=== PATIENT | female | born 1930 | race Caucasian/White ===

== ENCOUNTER 2017-02-15 08:11 | Observation (INO) | payer MEDICARE, OTHER ==
[2017-02-15] VITALS (11 sets, daily range): BP systolic 147–187; BP diastolic 81–101; PULSE 78–104; RESP 16–21; TEMP 97.6–97.8; O2SAT 97–99
[~2017-02-15] VITALS: Ht 157.5 cm; Wt 69.0 kg
[~2017-02-15 08:11] MED LIST: BLOO1KIT65; JANT5TAB2 PO; METO25 PO; [UNRECOGNIZED DRUG - CODE] PO
[2017-02-15] MEDS ORDERED: SODIUM CHLORIDE 0.9% FLUSH 10 ML FLUSH IVF PRN (08:45)
[2017-02-15] MEDS ORDERED: WARF-20 PO (08:48)
[2017-02-15] MEDS ORDERED: WARF-58 PO (08:48)
--- NOTE | 2017-02-15 08:48 | PD ---
HPI Chief Complaint: near syncope Time Seen by Provider: 08:38 Travel History International Travel<30 days: No Contact w/Intl Traveler<30days: No History of Present Illness HPI 86-year-old female states she was walking when she felt like she was gonna pass out and got nauseous. She states she developed a mild right frontal headache that has now gone away. She denies any associated chest pain or chest pressure or other concurrent complaints other than feeling weak all over. She states that she is on Coumadin for prior history of stroke and has a mild left-sided deficit from this. She states she lives at home by herself so she called her neighbor who insisted she called the ambulance to help her out. She states feeling tired like. PFSH Past Medical History Hx Anticoagulant Therapy: Yes Arthritis: Yes Asthma: No Atrial Fibrillation: Yes Autoimmune Disease: No Blood Disorders: No Anxiety: No Depression: No Heart Rhythm Problems: Yes (ATRIAL FIBRILLATION) Cancer: No Cardiovascular Problems: Yes (AFIB) High Cholesterol: Yes Chemotherapy: No Chest Pain: No Congestive Heart Failure: No COPD: No Cerebrovascular Accident: Yes (2011) Diabetes: No Diminished Hearing: No Endocrine: No GERD: No Genitourinary: No Hiatal Hernia: No Hypertension: No Immune Disorder: No Kidney Stones: No Musculoskeletal: Yes Neurologic: Yes Psychiatric: No Reproductive: No Respiratory: No Migraines: No Myocardial Infarction: No Radiation Therapy: No Renal Failure: No Seizures: No Sickle Cell Disease: No Sleep Apnea: No Thyroid Disease: Yes Ulcer: No PNEUMOCCOCAL Vaccine (Year): 1 Menopausal: Yes Past Surgical History Abdominal Surgery: No AICD: No Cardiac Surgery: No Ear Surgery: No Endocrine Surgery: No Eye Surgery: No Genitourinary Surgery: Yes (BLADDER LIFT) Gynecologic Surgery: Yes (PARTIAL HYSTERECTOMY) Hysterectomy: Yes (PARTIAL) Oral Surgery: No Pacemaker: No Thoracic Surgery: No Other Surgery: Yes (CYST ON NECK REMOVED) Social History Alcohol Use: Yes (occasional glass of wine) Tobacco Use: No Substance Use: No Allergies-Medications (Allergen,Severity, Reaction): Coded Allergies: Digoxin (Verified Adverse Reaction, Mild, WEAKNESS, 02/15/17) Reported Meds & Prescriptions Reported Meds & Active Scripts Active Reported Warfarin 3 Mg Tab 3 Mg PO MON-=THUR-MON Warfarin 4 Mg Tab 4 Mg PO -MON-MON PRN Review of Systems Except as stated in HPI: all other systems reviewed are Neg Physical Exam Narrative GENERAL: Well-nourished, well-developed patient. SKIN: Warm and dry. HEAD: Normocephalic and atraumatic. EYES: No injection or drainage. Pupils equal ENT: No nasal drainage noted. NECK: Supple, trachea midline. CARDIOVASCULAR: Regular rate and rhythm RESPIRATORY: Breath sounds equal bilaterally. No accessory muscle use. GASTROINTESTINAL: Abdomen soft, non-tender, nondistended. NEUROLOGICAL: Awake and alert. Mild left-sided deficit at baseline per patient and sensory grossly within normal limits. Normal speech. Data Data Last Documented VS Vital Signs Date Time Temp Pulse Resp B/P Pulse Ox O2 Delivery O2 Flow Rate FiO2 02/15/17 11:10 97.8 78 16 147/81 99 Room Air Orders Electrocardiogram (02/15/17 ) Electrocardiogram (02/15/17 08:44) Ckmb (Isoenzyme) Profile (02/15/17 08:44) Complete Blood Count With Diff (02/15/17 08:44) Comprehensive Metabolic Panel (02/15/17 08:44) Magnesium (Mg) (02/15/17 08:44) Prothrombin Time / Inr (Pt) (02/15/17 08:44) Act Partial Throm Time (Ptt) (02/15/17 08:44) Troponin I (02/15/17 08:44) Lipase (02/15/17 08:44) Chest, Single Ap (02/15/17 08:44) Ecg Monitoring (02/15/17 08:44) Iv Access Insert/Monitor (02/15/17 08:44) Oximetry (02/15/17 08:44) Sodium Chloride 0.9% Flush (Ns Flush) (02/15/17 08:45) Ct Brain W/O Iv Contrast(Rout) (02/15/17 ) Urinalysis - C+S If Indicated (02/15/17 08:48) Admit Order (Ed Use Only) (02/15/17 11:13) Labs Laboratory Tests Test 02/15/17 02/15/17 08:00 10:55 White Blood Count 7.0 TH/MM3 Red Blood Count 4.03 MIL/MM3 Hemoglobin 12.9 GM/DL Hematocrit 38.2 % Mean Corpuscular Volume 94.6 FL Mean Corpuscular Hemoglobin 31.9 PG Mean Corpuscular Hemoglobin 33.7 % Concent Red Cell Distribution Width 15.0 % Platelet Count 186 TH/MM3 Mean Platelet Volume 10.3 FL Neutrophils (%) (Auto) 78.1 % Lymphocytes (%) (Auto) 13.3 % Monocytes (%) (Auto) 7.0 % Eosinophils (%) (Auto) 0.7 % Basophils (%) (Auto) 0.9 % Neutrophils # (Auto) 5.5 TH/MM3 Lymphocytes # (Auto) 0.9 TH/MM3 Monocytes # (Auto) 0.5 TH/MM3 Eosinophils # (Auto) 0.0 TH/MM3 Basophils # (Auto) 0.1 TH/MM3 CBC Comment DIFF FINAL Differential Comment Prothrombin Time 25.5 SEC Prothromb Time International 2.2 RATIO Ratio Activated Partial 37.3 SEC Thromboplast Time Sodium Level 140 MEQ/L Potassium Level 3.8 MEQ/L Chloride Level 105 MEQ/L Carbon Dioxide Level 25.8 MEQ/L Anion Gap 9 MEQ/L Blood Urea Nitrogen 13 MG/DL Creatinine 0.60 MG/DL Estimat Glomerular Filtration 94 ML/MIN Rate Random Glucose 120 MG/DL Calcium Level 8.8 MG/DL Magnesium Level 2.0 MG/DL Total Bilirubin 0.8 MG/DL Aspartate Amino Transf 18 U/L (AST/SGOT) Alanine Aminotransferase 12 U/L (ALT/SGPT) Alkaline Phosphatase 77 U/L Total Creatine Kinase 33 U/L Troponin I LESS THAN 0.02 NG/ML Total Protein 7.0 GM/DL Albumin 3.4 GM/DL Lipase 67 U/L Urine Color LIGHT-YELLOW Urine Turbidity CLEAR Urine pH 7.0 Urine Specific [place] 1.012 Urine Protein NEG mg/dL Urine Glucose (UA) NEG mg/dL Urine Ketones 10 mg/dL Urine Occult Blood NEG Urine Nitrite NEG Urine Bilirubin NEG Urine Urobilinogen LESS THAN 2.0 MG/DL Urine Leukocyte Esterase MOD Urine RBC 1 /hpf Urine WBC 1 /hpf Urine Mucus FEW /lpf Microscopic Urinalysis Comment CULT NOT INDICATED MDM Medical Decision Making Medical Screen Exam Complete: Yes Emergency Medical Condition: Yes Medical Record Reviewed: Yes (past history confirmed) Interpretation(s) CBC & BMP Diagram 02/15/17 08:00 Last 24 hours Impressions Chest X-Ray 02/15/17 0864 Signed Impressions: Service Date/Time: Wednesday, February 15, 2017 08:48 - CONCLUSION: Mild compensated cardiomegaly otherwise negative . Reese Morris MD FACR Head CT 02/15/17 0000 Signed Impressions: Service Date/Time: Wednesday, February 15, 2017 10:39 - CONCLUSION: Mild atrophy with periventricular ischemic changes and old cerebral infarct on the right. Negative for parenchymal hemorrhage or acute infarction. Reese Morris MD FACR Differential Diagnosis Intercranial bleed, UTI, renal failure, anemia, atypical [place] Narrative Course Will check blood work, imaging and monitor Patient has not given urinalysis yet. She does note that she recently had a urinary tract infection a week ago and is no longer on antibiotics. Will await urinalysis ua without significant signs of infection. We'll admit for cardiac monitoring and observation of near syncope, patient updated and agrees to plan Physician Communication Physician Communication dr guillen agrees to admit Diagnosis Primary Impression: Near syncope Admitting Information Admitting Physician Requests: Observation Ciara Martin MD Feb 15, 2017 08:48
--- NOTE | 2017-02-15 09:03 | RADRPT ---
EXAM DATE/TIME: 02/15/2017 08:48 [facility] COMPARISON: CHEST SINGLE AP, March 19, 2016, 18:27. INDICATIONS : Patient has had chest pain and felt like she was going to pass out this morning. MEDICAL HISTORY : Cardiovascular disease. CVA. SURGICAL HISTORY : None. ENCOUNTER: Initial ACUITY: 1 day PAIN SCORE: 4/10 LOCATION: Bilateral chest FINDINGS: The lungs are clear. The heart is minimally enlarged. The pulmonary vascularity is normal. There is n o evidence for infiltrate or failure. The portion of the bony skeleton visualized is unremarkable. CONCLUSION: Mild compensated cardiomegaly otherwise negative . Reese Morris MD FACR on February 15, 2017 at 9:01 Board Certified Radiologist. This report was verified electronically.
[2017-02-15 09:04] LABS: AUTOMATED NEUTROPHIL # 5.5 TH/MM3 (1.8-7.7); BASOPHIL # 0.1 TH/MM3 (0-0.2); BASOPHIL % 0.9 % (0.0-2.0); EOSINOPHIL % 0.7 % (0.0-4.0); HEMATOCRIT 38.2 % (35.0-46.0); HEMO FLAGS DIFF FINAL; LYMPH % 13.3 % (9.0-44.0); LYMPHOCYTE # 0.9 TH/MM3 (1.0-4.8); MEAN CELL VOLUME 94.6 FL (80.0-100.0); MEAN CORPUSCULAR HEMOGLOBIN 31.9 PG (27.0-34.0); MEAN CORPUSCULAR HGB CONC 33.7 % (32.0-36.0); NEUT % 78.1 % (16.0-70.0); PLATELET COUNT 186 TH/MM3 (150-450); RED BLOOD COUNT 4.03 MIL/MM3 (4.00-5.30)
[2017-02-15 09:11] LABS: APTT (PATIENT) 37.3 SEC (24.3-30.1); INTERNATIONAL NORMALIZED RATIO 2.2 RATIO; PROTHROMBIN TIME - PATIENT 25.5 SEC (9.8-11.6)
[2017-02-15 09:18] LABS: ANION GAP 9 MEQ/L (5-15); AST (GOT) 18 U/L (15-37); BICARBONATE 25.8 MEQ/L (21.0-32.0); BLOOD UREA NITROGEN 13 MG/DL (7-18); CHLORIDE 105 MEQ/L (98-107); GLOMERULAR FILTRATION RATE 94 ML/MIN (>89); POTASSIUM 3.8 MEQ/L (3.5-5.1); SODIUM (NA) 140 MEQ/L (136-145)
[2017-02-15 09:23] LABS: ALKALINE PHOSPHATASE 77 U/L (45-117); ALT (GPT) 12 U/L (10-53); TOTAL BILIRUBIN ADULT 0.8 MG/DL (0.2-1.0)
[2017-02-15 09:27] LABS: CREATINE KINASE 33 U/L (26-192)
--- NOTE | 2017-02-15 10:59 | RADRPT ---
EXAM DATE/TIME: 02/15/2017 10:39 [facility] COMPARISON: CT BRAIN W/O CONTRAST, March 19, 2016, 19:01. INDICATIONS : Dizziness, near-syncopal episode. RADIATION DOSE: 56.77 CTDIvol (mGy) MEDICAL HISTORY : Stroke. Cardiovascular disease SURGICAL HISTORY : None. ENCOUNTER: Initial ACUITY: 1 day PAIN SCALE: 0/10 LOCATION: cranial TECHNIQUE: Multiple contiguous axial images were obtained of the head. Using automated exposure control and adj ustment of the mA and/or kV according to patient size, radiation dose was kept as low as reasonably a chievable to obtain optimal diagnostic quality images. DICOM format image data is available electro nically for review and comparison. FINDINGS: CEREBRUM: The ventricles are normal for age. No evidence of midline shift, mass lesion, hemorrhage or acute in farction. Evidence for old infarct is present on the right. No extra-axial fluid collections are se en. POSTERIOR FOSSA: The cerebellum and brainstem are intact. The 4th ventricle is midline. The cerebellopontine angle i s unremarkable. EXTRACRANIAL: The visualized portion of the orbits is intact. SKULL: The calvaria is intact. No evidence of skull fracture. CONCLUSION: Mild atrophy with periventricular ischemic changes and old cerebral infarct on the right. Negative for parenchymal hemorrhage or acute infarction. Reese Morris MD FACR on February 15, 2017 at 10:56 Board Certified Radiologist. This report was verified electronically.
[2017-02-15 11:17] LABS: BLOOD, URINE NEG (NEG); COMMENT (UR) CULT NOT INDICATED; CULTURE IF INDICATED CULT NOT INDICATED; GLUCOSE,URINE NEG (NEG); KETONE, URINE 10 mg/dL (NEG); MUCUS URINE FEW /lpf (OCC); NITRITE,URINE NEG (NEG); URINE COLOR LIGHT-YELLOW (YELLW/STRAW)
[2017-02-15] MEDS ORDERED: ONDANSETRON HCL 4 MG/2 ML VIAL IVP PRN (11:45)
[2017-02-15] MEDS ORDERED: SODIUM CHLORIDE 0.9% FLUSH 10 ML FLUSH IV FLUSH PRN (11:45)
[2017-02-15] MEDS ORDERED: ACETAMINOPHEN 325 MG TAB PO PRN (11:45)
[2017-02-15] MEDS ORDERED: BISACODYL 10 MG SUPP RECTAL PRN (11:45)
[2017-02-15] MEDS ORDERED: NALOXONE HCL 0.4 MG/ML AMP IV PRN (11:45)
[2017-02-15] MEDS ORDERED: LACTULOSE SYRUP 20 GM/30 ML CUP PO PRN (11:45)
[2017-02-15] MEDS ORDERED: MAGNESIUM HYDROXIDE SUSP 30 ML CUP PO PRN (11:45)
[2017-02-15] MEDS ORDERED: SENNOSIDES 8.6 MG TAB PO PRN (11:45)
--- NOTE | 2017-02-15 15:14 | HHI.HP ---
[facility] Yelena Evangelista MD Admission Diagnosis near syncope Diagnoses: Chief Complaint: near syncope Travel History International Travel<30 Days: No Contact w/Intl Traveler <30 Da: No Traveled to Known Affected Are: No History of Present Illness Written by Kaylyn Mccoy, acting as scribe for Dr. Villavicencio on 02/15/17 at 15:06. This note was transcribed by scribTAQUERIA Mccullough. I, Dr. Randell Villavicencio personally performed the history, physical exam, and medical decision making; and confirmed the accuracy of the information in the transcribed note. Authenticated by Dr. Randell Villavicencio on 02/15/17 at 23:12. 86-year-old female with history of CVA and atrial fibrillation on Coumadin, presents with acute onset of near syncope this morning 02/15/17. The patient explains she woke up this morning, got up from bed, felt very weak, dizzy, and diaphoretic. She also reported severe headache and nausea, but no vomiting. She states her heart is always "racing" because of her afib. She did not check her pulse this morning. Her symptoms persisted for a few hours until after she arrived to the hospital. Currently her symptoms have subsided, but she still feels weak and unsteady. She reports history of stroke 6 years ago and she was worried she was having another one. She is not on any rate control medications for her afib and does not want to be on any new meds. She states she had a bad reaction with syncope and fall previously while on digoxin. She has been eating and drinking well recently. Denies any other medical complaints including no fevers/chills, chest pain, shortness of breath, abdominal pains. She was found to have abnormal urinalysis upon arrival. Patient states 2 weeks ago she had a routine check up with her PCP, found to have a UTI, and already completed treatment with a course of antibiotics. She denies any dysuria, increased urinary frequency/urgency, or suprapubic pain. Review of Systems Except as stated in HPI: all other systems reviewed are Neg Past Family Social History Past Medical History CVA Atrial Fibrillation on Coumadin Denies any history of HTN, HLD, or Diabetes. 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 Reported Medications Warfarin 3 Mg Tab 3 Mg PO MON-=TH-MON Warfarin 4 Mg Tab 4 Mg PO -MON-MON PRN Allergies: Coded Allergies: Digoxin (Verified Adverse Reaction, Mild, WEAKNESS, 02/15/17) Active Ordered Medications Current Medications Medications (Trade) Dose Ordered Sig/Trudy Route Start Time Stop Time Status Last Admin (NS Flush) 2 ml UNSCH PRN IV FLUSH 02/15/17 11:45 (NS Flush) 2 ml BID IV FLUSH 02/15/17 21:00 (Tylenol) 650 mg Q4H PRN PO 02/15/17 11:45 (Zofran Inj) 4 mg Q6H PRN IVP 02/15/17 11:45 (Narcan Inj) 0.4 mg UNSCH PRN IV 02/15/17 11:45 (Zenia-Colace) 1 tab BID PO 02/15/17 21:00 (Milk Of Magnesia Liq) 30 ml Q12H PRN PO 02/15/17 11:45 (Senokot) 17.2 mg Q12H PRN PO 02/15/17 11:45 (Dulcolax Supp) 10 mg DAILY PRN RECTAL 02/15/17 11:45 (Lactulose Liq) 30 ml DAILY PRN PO 02/15/17 11:45 Family History Father with stomach cancer Social History Denies ever any tobacco use Very occasional alcohol use Denies illicit drug use Physical Exam Vital Signs Vital Signs Date Time Temp Pulse Resp B/P Pulse Ox O2 Delivery O2 Flow Rate FiO2 02/15/17 12:34 97.8 89 16 150/81 99 02/15/17 11:56 97 21 02/15/17 11:47 89 16 153/86 96 16 149/92 89 149/96 02/15/17 11:10 97.8 78 16 147/81 99 Room Air 02/15/17 09:52 97.8 78 17 156/83 99 Room Air 02/15/17 08:48 16 98 Room Air 02/15/17 08:38 86 17 98 Room Air 02/15/17 08:37 86 17 168/97 98 Physical Exam GENERAL: Well-nourished, well-developed pleasant elderly female patient in [facility]. SKIN: Warm and dry. No rash. HEAD: Normocephalic. Atraumatic. EYES: Pupils equal and round. No scleral icterus. No injection or drainage. ENT: No nasal bleeding or discharge. Mucous membranes pink and moist. NECK: Supple. Trachea midline. CARDIOVASCULAR: Irregular rate and rhythm. S1, S2 noted. No murmur appreciated. RESPIRATORY: No accessory muscle use. Clear to auscultation. Breath sounds equal bilaterally. GASTROINTESTINAL: Abdomen soft, non-tender, nondistended. Normoactive bowel sounds x4. MUSCULOSKELETAL: No obvious deformities. 1+ BLE edema. B/l Calves nontender to palpation. NEUROLOGICAL: Awake and alert. No obvious cranial nerve deficits. Motor grossly within normal limits. Normal speech. PSYCHIATRIC: Appropriate mood and affect; insight and judgment normal. Laboratory Laboratory Tests Test 02/15/17 02/15/17 08:00 10:55 White Blood Count 7.0 Red Blood Count 4.03 Hemoglobin 12.9 Hematocrit 38.2 Mean Corpuscular Volume 94.6 Mean Corpuscular Hemoglobin 31.9 Mean Corpuscular Hemoglobin 33.7 Concent Red Cell Distribution Width 15.0 Platelet Count 186 Mean Platelet Volume 10.3 Neutrophils (%) (Auto) 78.1 Lymphocytes (%) (Auto) 13.3 Monocytes (%) (Auto) 7.0 Eosinophils (%) (Auto) 0.7 Basophils (%) (Auto) 0.9 Neutrophils # (Auto) 5.5 Lymphocytes # (Auto) 0.9 Monocytes # (Auto) 0.5 Eosinophils # (Auto) 0.0 Basophils # (Auto) 0.1 CBC Comment DIFF FINAL Differential Comment Prothrombin Time 25.5 Prothromb Time International 2.2 Ratio Activated Partial 37.3 Thromboplast Time Sodium Level 140 Potassium Level 3.8 Chloride Level 105 Carbon Dioxide Level 25.8 Anion Gap 9 Blood Urea Nitrogen 13 Creatinine 0.60 Estimat Glomerular Filtration 94 Rate Random Glucose 120 Calcium Level 8.8 Magnesium Level 2.0 Total Bilirubin 0.8 Aspartate Amino Transf 18 (AST/SGOT) Alanine Aminotransferase 12 (ALT/SGPT) Alkaline Phosphatase 77 Total Creatine Kinase 33 Troponin I LESS THAN 0.02 Total Protein 7.0 Albumin 3.4 Lipase 67 Urine Color LIGHT-YELLOW Urine Turbidity CLEAR Urine pH 7.0 Urine Specific [place] 1.012 Urine Protein NEG Urine Glucose (UA) NEG Urine Ketones 10 Urine Occult Blood NEG Urine Nitrite NEG Urine Bilirubin NEG Urine Urobilinogen LESS THAN 2.0 Urine Leukocyte Esterase MOD Urine RBC 1 Urine WBC 1 Urine Mucus FEW Microscopic Urinalysis Comment CULT NOT INDICATED Date/Time Procedure Status Source Growth 02/15/17 10:55 Urine Culture Received Urine Clean Catch Pending Result Diagram: 02/15/17 0800 02/15/17 0800 Imaging Last Impressions Chest X-Ray 02/15/17 0844 Signed Impressions: Service Date/Time: Wednesday, February 15, 2017 08:48 - CONCLUSION: Mild compensated cardiomegaly otherwise negative . Reese Morris MD FACR Head CT 02/15/17 0000 Signed Impressions: Service Date/Time: Monday, February 15, 2017 10:39 - CONCLUSION: Mild atrophy with periventricular ischemic changes and old cerebral infarct on the right. Negative for parenchymal hemorrhage or acute infarction. Reese Morris MD FACR Assessment and Plan Problem List: (1) Near syncope ICD Code: R55 Status: Acute (2) Atrial fibrillation ICD Code: I48.91 Status: Chronic Assessment and Plan 86-year-old female with history of CVA and atrial fibrillation on Coumadin, presents with acute onset of near syncope this morning 02/15/17. Near Syncope: possibly related to orthostasis or arrhythmia. Need to rule out ACS. Head CT images reviewed, shows mild atrophy with periventricular ischemic changes and old cerebral infarct on the right; no acute findings. -Continue to rule out ACS with serial cardiac enzymes and EKGs -Check orthostatics -Monitor on telemetry, neuro checks -Consult PT Atrial Fibrillation: on Coumadin, INR therapeutic at 2.2. Patient sees propeller engineer Dr. Arzate, hx of unremarkable outpatient echocardiograms in the past. -Continue patient's coumadin -monitor heart rate Hx of CVA: chronic -continue coumadin as above -monitor neuro checks Abnormal Urinalysis: asymptomatic. Patient recently completed antibiotic treatment for UTI 2 weeks ago. -check mandatory urine culture -will hold off on antibiotics at this time DVT Prophylaxis: on Coumadin Discussed Condition With Patient, ER Kaylyn Philippe PA-C Feb 15, 2017 15:14 Annalise Villavicencio DO Feb 15, 2017 23:12
[2017-02-15 15:20] LABS: CREATINE KINASE 35 U/L (26-192)
[2017-02-15] MEDS ORDERED: WARFARIN SOD 4 MG TAB PO SCH (17:00)
[2017-02-15 22:37] LABS: CREATINE KINASE 38 U/L (26-192)
[2017-02-15] MEDS: SODIUM CHLORIDE 0.9% FLUSH 10 ML FLUSH IV FLUSH SCH (22:50)
[2017-02-15] MEDS: DOCUSATE SODIUM 50 MG/SENNA 8.6 MG TAB PO SCH (22:50)
[2017-02-16 00:19] VITALS: BP_SYST 136; BP_SYST 139; BP_SYST 154; BP_DIAS 84; BP_DIAS 94; PULSE 84; RESP 17; TEMP 98.1; O2SAT 98
[2017-02-16 04:10] VITALS: BP_SYST 146; BP_SYST 149; BP_SYST 157; BP_DIAS 83; BP_DIAS 86; BP_DIAS 90; PULSE 96; RESP 16; TEMP 97.9; O2SAT 94
[2017-02-16 07:34] LABS: BASOPHIL % 0.6 % (0.0-2.0); EOSINOPHIL % 0.5 % (0.0-4.0); HEMATOCRIT 37.9 % (35.0-46.0); HEMO FLAGS DIFF FINAL; LYMPH % 20.7 % (9.0-44.0); LYMPHOCYTE # 1.5 TH/MM3 (1.0-4.8); MEAN CORPUSCULAR HEMOGLOBIN 32.4 PG (27.0-34.0); MEAN CORPUSCULAR HGB CONC 34.4 % (32.0-36.0); MONO % 9.1 % (0.0-8.0); NEUT % 69.1 % (16.0-70.0); PLATELET COUNT 184 TH/MM3 (150-450); RED BLOOD COUNT 4.03 MIL/MM3 (4.00-5.30); RED CELL DISTRIBUTION WIDTH 14.5 % (11.6-17.2); WHITE BLOOD COUNT 7.2 TH/MM3 (4.0-11.0)
[2017-02-16 07:37] VITALS: BP_SYST 142; BP_SYST 146; BP_SYST 177; BP_DIAS 102; BP_DIAS 77; PULSE 80; RESP 20; TEMP 97.9; O2SAT 98
[2017-02-16 07:40] LABS: INTERNATIONAL NORMALIZED RATIO 2.6 RATIO; PROTHROMBIN TIME - PATIENT 29.7 SEC (9.8-11.6)
[2017-02-16 08:21] LABS: BICARBONATE 27.3 MEQ/L (21.0-32.0); POTASSIUM 3.6 MEQ/L (3.5-5.1)
[2017-02-16 08:45] VITALS: PULSE 97
[2017-02-16] MEDS: SODIUM CHLORIDE 0.9% FLUSH 10 ML FLUSH IV FLUSH SCH (08:58)
[2017-02-16] MEDS: DOCUSATE SODIUM 50 MG/SENNA 8.6 MG TAB PO SCH (08:58)
--- NOTE | 2017-02-16 09:32 | HHI.FF ---
Face to Face Verification Diagnosis: (1) Near syncope (2) Atrial fibrillation Physical Therapy Order: Evaluate and Treat, Improve ambulation, Strength and gait training Home Health Nursing Order: Signs/symptoms of disease process Nursing assessment with vital signs I have seen patient Miya Israel on 02/16/17. My clinical findings support the need for the requested home health care services because: Deconditioned w/ increased weakness Limited ability to care for self Need for psychosocial assistance High risk of falls I certify that my clinical findings support that this patient is homebound because: Unsteady gait/balance Unsafe to leave home unassisted Need for psychosocial assistance Unable to use public transportation Annalise Villavicencio DO Feb 16, 2017 9:31 am
--- NOTE | 2017-02-16 09:33 | HHI.PR ---
Subjective Remarks Follow up for near syncope. Patient is currently doing well. She does not feel imbalanced as much as she did before. She is able to ambulate well. Patient is adamant about going home - does not want to consider SNF. No fever, chills. Objective Vitals Vital Signs Date Time Temp Pulse Resp B/P Pulse Ox O2 Delivery O2 Flow Rate FiO2 02/16/17 07:37 97.9 80 20 142/102 98 177/102 146/77 02/16/17 04:10 97.9 96 16 157/86 94 146/90 149/83 02/16/17 00:19 98.1 84 17 136/94 98 154/84 139/94 02/15/17 23:53 81 02/15/17 20:16 16 02/15/17 19:19 97.8 90 18 161/94 97 02/15/17 17:05 97.6 84 21 172/84 99 187/89 170/101 02/15/17 16:15 104 02/15/17 12:34 97.8 89 16 150/81 99 02/15/17 11:56 97 21 02/15/17 11:47 89 16 153/86 96 16 149/92 89 149/96 02/15/17 11:10 97.8 78 16 147/81 99 Room Air 02/15/17 09:52 97.8 78 17 156/83 99 Room Air I/O 02/15/17 02/15/17 02/15/17 02/16/17 02/16/17 02/16/17 06:59 14:59 22:59 06:59 14:59 22:59 Intake Total 480 ml Output Total 800 ml Balance -800 ml 480 ml Intake Oral 480 ml Output Urine Total 800 ml # Voids 1 1 1 # Bowel Movements 0 Result Diagram: 02/16/17 0620 02/16/17 0620 Imaging Last Impressions Chest X-Ray 02/15/17 0844 Signed Impressions: Service Date/Time: Wednesday, February 15, 2017 08:48 - CONCLUSION: Mild compensated cardiomegaly otherwise negative . Reese Morris MD FACR Head CT 02/15/17 0000 Signed Impressions: Service Date/Time: Wednesday, February 15, 2017 10:39 - CONCLUSION: Mild atrophy with periventricular ischemic changes and old cerebral infarct on the right. Negative for parenchymal hemorrhage or acute infarction. Reese Morris MD FACR Objective Remarks GENERAL: AOX3, NAD. SKIN: Warm and dry. HEAD: Normocephalic. EYES: No scleral icterus. No injection or drainage. NECK: Supple, trachea midline. No JVD or lymphadenopathy. CARDIOVASCULAR: Regular rate and rhythm without murmurs, gallops, or rubs. RESPIRATORY: Breath sounds equal bilaterally. No accessory muscle use. GASTROINTESTINAL: Abdomen soft, non-tender, nondistended. MUSCULOSKELETAL: No cyanosis, or edema. BACK: Nontender without obvious deformity. No CVA tenderness. Procedures None. A/P Problem List: (1) Near syncope ICD Code: R55 Status: Acute (2) Atrial fibrillation ICD Code: I48.91 Status: Chronic Assessment and Plan 86-year-old female with history of CVA and atrial fibrillation on Coumadin, presents with acute onset of near syncope this morning 02/15/17. Near Syncope: possibly related to orthostasis or arrhythmia. Need to rule out ACS. Head CT images reviewed, shows mild atrophy with periventricular ischemic changes and old cerebral infarct on the right; no acute findings. -Troponins x 3 negative. - Patient is encouraged to keep herself well hydrated and maintain regular amount of salt. Atrial Fibrillation: on Coumadin, INR therapeutic at 2.6. Patient sees intramural director Dr. Arzate, hx of unremarkable outpatient echocardiograms in the past. -Continue patient's coumadin -monitor heart rate Hx of CVA: chronic -continue coumadin as above -monitor neuro checks Abnormal Urinalysis: asymptomatic. Patient recently completed antibiotic treatment for UTI 2 weeks ago. -check mandatory urine culture -will hold off on antibiotics at this time DVT Prophylaxis: on Coumadin Discharge patient to home Condition on discharge: Improved Regular Diet as tolerated Ad Sudha activity Rx written: None. Follow-up with primary care physician within one week. Annalise Villavicencio DO Feb 16, 2017 09:33
[2017-02-16] MEDS ORDERED: PNEUMOCOCCAL POLYVALENT INJ 25 MCG/0.5 ML SYR IM ONE (10:00)
[2017-02-16] MEDS ORDERED: WARFARIN SOD 3 MG TAB PO SCH (16:00)
--- NOTE | 2017-02-16 18:22 | EKG ---
Date Performed: 02/15/2017 Time Performed: 08:49:27 PTAGE: 86 years EKG: ATRIAL FIBRILLATION NONSPECIFIC ST & T-WAVE ABNORMALITY Since previous tracing, no signific ant change noted ABNORMAL RHYTHM ECG PREVIOUS TRACING : 03/19/2016 18.38 DOCTOR: Riana Arzate Interpretating Date/Time 02/16/2017 18:21:14
--- NOTE | 2017-02-16 18:22 | EKG ---
Date Performed: 02/15/2017 Time Performed: 14:07:53 PTAGE: 86 years EKG: ATRIAL FIBRILLATION NONSPECIFIC ST & T-WAVE ABNORMALITY Since previous tracing, no signific ant change noted ABNORMAL RHYTHM ECG PREVIOUS TRACING : 02/15/2017 08.49 DOCTOR: Riana Arzate Interpretating Date/Time 02/16/2017 18:21:26
--- NOTE | 2017-02-16 18:22 | EKG ---
Date Performed: 02/15/2017 Time Performed: 20:47:11 PTAGE: 86 years EKG: ATRIAL FIBRILLATION Since previous tracing, no significant change noted ABNORMAL RHYTHM ECG PREVIOUS TRACING : 02/15/2017 14.07 DOCTOR: Riana Arzate Interpretating Date/Time 02/16/2017 18:21:40
== END 2017-02-16 11:38 | disposition home or self-care (01) ==
LOC: NEPC 08:11 → NEDA 11:15 → NEPGCP 13:47
PROVIDERS: ADMIT Hospitalist; ATTEND Hospitalist
DX: R55 Syncope and collapse (principal); I48.91 Unspecified atrial fibrillation; R82.90 Unspecified abnormal findings in urine; Z86.73 Personal history of transient ischemic attack (TIA), and cerebral infarction without residual deficits; Z79.01 Long term (current) use of anticoagulants; Z23 Encounter for immunization
CPT/HCPCS: 70450; 71010; 80048; 80053; 81001; 82550; 83690; 83735; 84484; 85025; 85610; 85730; 87086; 90732; 93005; 96374; 97162; 99285; G0378; G8987; G8988; J2405